=== PATIENT | male | born 2000 | race Two or more races ===

== ENCOUNTER → 2025-04-10 | Outpatient (BNVA) | payer SELFPAY | END | disposition home or self-care (01) | PROVIDERS: PCP Nurse Practitioner Family; Referring Provider Nurse Practitioner Family; Visit Provider Nurse Practitioner Primary Care | DX: Z02.1 Encounter for pre-employment examination (principal) ==

== ENCOUNTER → 2025-04-10 | Outpatient (BNVA) | payer SELFPAY | END | disposition home or self-care (01) | PROVIDERS: PCP Nurse Practitioner Primary Care; Referring Provider Nurse Practitioner Primary Care; Visit Provider Nurse Practitioner Primary Care | DX: Z02.1 Encounter for pre-employment examination (principal) | CPT/HCPCS: 99499 ==